=== PATIENT | male | born 1990 | race Caucasian/White ===

== ENCOUNTER 2017-09-24 13:19 | Emergency (ER) | payer OTHER ==
[2017-09-24] MEDS ORDERED: CHLORDIAZEPOXIDE 25MG PREPK#6 BTL TAKEHOME ONE (14:07)
--- NOTE | 2017-09-24 14:07 | EDPHY ---
H & P Stated Complaint: pt here for medical clearance for inpatient etoh treatment program Time Seen by Provider: 09/24/17 13:59 HPI/ROS: CHIEF COMPLAINT: Alcoholism HISTORY OF PRESENT ILLNESS: The patient is a 27-year-old man who is here for medical clearance. [facility] but had a blood alcohol level of 200. They sent him here for medical clearance and also requesting a prescription for Librium. The patient does have a history of seizures and it is unclear whether they are alcohol induced or a true seizure disorder. He does take trileptal daily. He did take it today. He states that his last drink was about midnight last night. He is currently asymptomatic. REVIEW OF SYSTEMS: Constitutional: denies: chills, fever, recent illness, recent injury EENTM: denies: blurred vision, double vision, nose congestion Respiratory: denies: cough, shortness of breath Cardiac: denies: chest pain, irregular heart rate, lightheadedness, palpitations Gastrointestinal/Abdominal: denies: abdominal pain, diarrhea, nausea, vomiting, blood streaked stools Genitourinary: denies: dysuria, frequency, hematuria, pain Musculoskeletal: denies: joint pain, muscle pain Skin: denies: lesions, rash, jaundice, bruising Neurological: denies: headache, numbness, paresthesia, tingling, dizziness, weakness Hematologic/Lymphatic: denies: blood clots, easy bleeding, easy bruising Immunologic/allergic: denies: HIV/AIDS, transplant EXAM: GENERAL: Well-appearing, well-nourished and in no acute distress. HEAD: Atraumatic, normocephalic. EYES: Pupils equal round and reactive to light, extraocular movements intact, sclera anicteric, conjunctiva are normal. ENT: TMs normal, nares patent, oropharynx clear without exudates. Moist mucous membranes. NECK: Normal range of motion, supple without lymphadenopathy or JVD. LUNGS: Breath sounds clear to auscultation bilaterally and equal. No wheezes rales or rhonchi. HEART: Not tachycardic, Regular rate and rhythm without murmurs, rubs or gallops. ABDOMEN: Soft, nontender, normoactive bowel sounds. No guarding, no rebound. No masses appreciated. BACK: No CVA tenderness, no spinal tenderness, step-offs or deformities EXTREMITIES: No tremors, Normal range of motion, no pitting or edema. No clubbing or cyanosis. NEUROLOGICAL: Cranial nerves II through XII grossly intact. Normal speech, normal gait. 5/5 strength, normal movement in all extremities, normal sensation PSYCH: Normal mood, normal affect. SKIN: Warm, dry, normal turgor, no visible rashes or lesions. Source: Patient, Family - Personal History Current Tetanus Diphtheria and Acellular Pertussis (TDAP): Unsure - Medical/Surgical History Hx Asthma: No Hx Chronic Respiratory Disease: No Hx Diabetes: No Hx Cardiac Disease: No Hx Renal Disease: No Hx Cirrhosis: No Hx Alcoholism: Yes Hx HIV/AIDS: No Hx Splenectomy or Spleen Trauma: No Other PMH: etoh seizures, verocele - Family History Significant Family History: No pertinent family hx - Social History Smoking Status: Current every day smoker Alcohol Use: Heavy Constitutional: Initial Vital Signs Temperature (C) 36.5 C 09/24/17 13:24 Heart Rate 99 09/24/17 13:24 Respiratory Rate 18 09/24/17 13:24 Blood Pressure 143/91 H 09/24/17 13:24 O2 Sat (%) 97 09/24/17 13:24 O2 Delivery Mode Room Air Allergies/Adverse Reactions: No Known Allergies Allergy (Unverified 09/24/17 13:22) Home Medications: Medication Instructions Recorded OXcarbazepine 09/24/17 chlordiazePOXIDE [Librium 25 mg 25 mg PO TID #10 cap 09/24/17 (*)] Medical Decision Making ED Course/Re-evaluation: Patient is currently asymptomatic. He is answering all questions appropriately. He is walking without difficulty. He is clinically sober. He is medically cleared for rehab. I will give them a small prescription of Librium as well as a take-home pack with instructions. Patient's brother who is sober will drive him back to the rehab facility. Differential Diagnosis: Partial list of the Differential diagnosis considered include but were not limited to; alcoholism, alcohol withdrawal, polysubstance abuse, seizure disorder and although unlikely based on the history and physical exam, I also considered infection, trauma, concussion. I discussed these differential diagnoses and the plan with the patient as well as the usual and expected course. The patient understands that the diagnosis is provisional and that in medicine we are not always correct and that further workup is often warranted. Usual and customary warnings were given. All of the patient's questions were answered. The patient was instructed to return to the emergency department should the symptoms at all worsen or return, otherwise to followup with the physician as we discussed. - Data Points Medications Given: Discontinued Medications Chlordiazepoxide (Librium 25 Mg Prepack#6) [facility] Stop: 09/24/17 14:08 Last Admin: 09/24/17 14:40 Dose: 1 btl Departure - Departure Disposition: Home, Routine, Self-Care Clinical Impression: Alcoholism /alcohol abuse Condition: Good Instructions: Chlordiazepoxide (By mouth), Alcohol Dependence (ED) Referrals: NONE *PRIMARY CARE P,. [Primary Care Provider] - As per Instructions Prescriptions: chlordiazePOXIDE [Librium 25 mg (*)] 25 mg PO TID #10 cap
[2017-09-24 14:51] VITALS: BP 130/74; PULSE 98; RESP 16; TEMP 98.2; O2SAT 98
== END 2017-09-24 14:53 | disposition home or self-care (01) ==
DX: F10.129 Alcohol abuse with intoxication, unspecified (principal); F17.200 Nicotine dependence, unspecified, uncomplicated